=== PATIENT | female | born 1950 | race Caucasian/White ===

== ENCOUNTER 2024-12-06 09:56 | Outpatient (CLI) | payer MEDICARE ==
[~2024-12-06] VITALS: Ht 167.6 cm; Wt 68.0 kg
[2024-12-06] MEDS: albuterol 2.5 MG/3 ML nebule NEB ONE (10:48)
[2024-12-06 10:49] VITALS: PULSE 68; RESP 16; O2SAT 93
[2024-12-06 11:00] VITALS: PULSE 65; RESP 16
== END 2024-12-06 23:59 | disposition home or self-care (01) ==
LOC: RT 09:56
PROVIDERS: ATTEND Family Medicine
DX: R06.09 Other forms of dyspnea (principal)
CPT/HCPCS: 94060; 94760

== ENCOUNTER 2025-04-18 12:40 | Outpatient (CLI) | payer MEDICARE ==
--- NOTE | 2025-04-18 15:04 | VASCULAR REPORT ---
Bilateral lower extremity venous duplex Clinical History: edema Comparison: None Technique: Duplex Doppler evaluation of the deep venous systems of both lower extremities from the common femora l veins to the popliteal veins including color Doppler and spectral/pulsed waveform analysis was perf ormed. Findings: RIGHT SIDE: The common femoral vein demonstrates appropriate compressibility and waveform variability. There is compressibility/patency of the great saphenous vein at the proximal thigh. The femoral vein demonstrates appropriate compressibility and waveform variability. The deep femoral vein demonstrates appropriate compressibility and waveform variability. The popliteal vein demonstrates appropriate compressibility and waveform variability. There is normal compressibility at the tibioperoneal trunk. LEFT SIDE: The common femoral vein demonstrates appropriate compressibility and waveform variability. There is compressibility/patency of the great saphenous vein at the proximal thigh. The femoral vein demonstrates appropriate compressibility and waveform variability. The deep femoral vein demonstrates appropriate compressibility and waveform variability. The popliteal vein demonstrates appropriate compressibility and waveform variability. There is normal compressibility at the tibioperoneal trunk. Impression: No right or left femoropopliteal venous thrombosis.
== END 2025-04-18 23:59 | disposition home or self-care (01) ==
LOC: VAS 12:40
PROVIDERS: ATTEND Nurse Practitioner
DX: R22.43 Localized swelling, mass and lump, lower limb, bilateral (principal)
CPT/HCPCS: 93970